=== PATIENT | male | born 1935 | race Caucasian/White ===

== ENCOUNTER 2017-03-06 10:26 | Emergency (ER) | payer MEDICARE, MEDICAID ==
[~2017-03-06] VITALS: Ht 177.8 cm; Wt 59.0 kg
[~2017-03-06 10:26] MED LIST: DONE5TAB33 PO; TAMS0.4C31 PO
[2017-03-06] MEDS ORDERED: ACETAMINOPHEN 325MG TABLET PO ONE (13:00)
[2017-03-06 13:19] LABS: BASOPHILS % 0.6 % (0.0-2.0); EOSINOPHILS % 2.1 % (0.0-5.0); HEMATOCRIT. 39.1 % (42.0-52.0); HEMOGLOBIN. 12.8 g/dL (14.0-18.0); LYMPHOCYTES % 29.2 % (20.0-50.0); MEAN CORPUSCULAR HEMOGLOBIN 30.7 pg (28.0-32.0); MEAN CORPUSCULAR VOLUME 93.8 fL (80.0-94.0); MEAN PLATELET VOLUME 8.5 fl (7.4-10.4); MONOCYTES % 13.7 % (2.0-8.0); NEUTROPHILS % 54.4 % (40.0-76.0); PLATELET 267 x1000/uL (130-400); RED BLOOD CELL COUNT 4.17 mill/uL (4.7-6.1)
[2017-03-06 13:33] LABS: CARBON DIOXIDE 31 mEq/L (21-32); CHLORIDE 107 mEq/L (98-107)
[2017-03-06 15:32] VITALS: BP 118/72
== END 2017-03-06 16:38 | disposition home or self-care (01) ==
LOC: ER 10:26
DX: M79.604 Pain in right leg (principal); W01.0XXA Fall on same level from slipping, tripping and stumbling without subsequent striking against object, initial encounter; Y93.89 Activity, other specified; Y92.89 Other specified places as the place of occurrence of the external cause; F02.80 Dementia in other diseases classified elsewhere, unspecified severity, without behavioral disturbance, psychotic disturbance, mood disturbance, and anxiety; G31.9 Degenerative disease of nervous system, unspecified; G30.9 Alzheimer's disease, unspecified; Z85.46 Personal history of malignant neoplasm of prostate; Z86.73 Personal history of transient ischemic attack (TIA), and cerebral infarction without residual deficits
CPT/HCPCS: 36415; 70450; 73502; 73560; 80053; 85025; 99285

== ENCOUNTER 2018-01-25 16:44 | Inpatient (IN) | payer MEDICARE, MEDICAID ==
[~2018-01-25] VITALS: Ht 170.2 cm; Wt 58.1 kg
[~2018-01-25 16:44] MED LIST changes: +ASPI-1236 MT; +ATOR10TA69 MT; +CYAN250014 PO; -DONE5TAB33 PO; +MULT-1146 MT; +PRIM50TA31 MT; -TAMS0.4C31 PO
[2018-01-25 18:20] LABS: CHLORIDE 105 mEq/L (98-107)
[2018-01-25 18:35] LABS: BASOPHILS % 0.4 % (0.0-2.0); HEMATOCRIT. 35.7 % (42.0-52.0); LYMPHOCYTES % 14.1 % (20.0-50.0); MEAN CORPUSCULAR HEMOGLOBIN 31.7 pg (28.0-32.0); MEAN CORPUSCULAR VOLUME 94.5 fL (80.0-94.0); MEAN PLATELET VOLUME 9.6 fl (7.4-10.4); MONOCYTES % 15.7 % (2.0-8.0); NEUTROPHILS % 69.8 % (40.0-76.0); PLATELET 193 x1000/uL (130-400); RED BLOOD CELL COUNT 3.78 mill/uL (4.7-6.1); RED CELL DISTRIBUTION WIDTH 13.6 % (11.6-14.6)
[2018-01-25] MEDS ORDERED: ACETAMINOPHEN 650MG SUPP PR ONE (19:00)
[2018-01-25 19:32] LABS: CLARITY URINE CLOUDY (CLEAR); COLOR URINE YELLOW (YELLOW); KETONES URINE NEGATIVE (NEGATIVE); LEUKOCYTE ESTERASE URINE 2+ (NEGATIVE); NITRITE URINE POSITIVE (NEGATIVE); OCCULT BLOOD URINE 1+ (NEGATIVE); PH URINE 7.5 (4.5-8.0); PROTEIN URINE 1+ (NEGATIVE); SPECIFIC GRAVITY URINE 1.018 (1.005-1.030)
[2018-01-25 19:39] LABS: *AMPHETAMINES SCREEN URINE NEGATIVE (NEGATIVE); *BARBITURATES SCREEN URINE NEGATIVE (NEGATIVE)
[2018-01-25 19:40] LABS: *BENZODIAZEPINES SCREEN URINE NEGATIVE (NEGATIVE); *COCAINE SCREEN URINE NEGATIVE (NEGATIVE); CANNABINOID URINE SCREEN NEGATIVE (NEGATIVE); METHADONE URINE SCREEN NEGATIVE (NEGATIVE); OPIATES URINE SCREEN NEGATIVE (NEGATIVE); PHENCYCLIDINE URINE SCREEN NEGATIVE (NEGATIVE)
[2018-01-25] MEDS ORDERED: GUAIFENESIN 200MG/10ML SUGAR FREE UDC PO PRN (22:00)
[2018-01-25] MEDS ORDERED: MORPHINE SULFATE 2 MG/ML CPJ (NOT FOR IM USE) IV PRN (22:00)
[2018-01-25] MEDS ORDERED: TRAMADOL 50MG TABLET PO PRN (22:00)
[2018-01-25] MEDS ORDERED: IPRATROPIUM/ALBUTEROL 0.5-3(2.5)MG/3ML NEB INH PRN (22:00)
[2018-01-25] MEDS ORDERED: SODIUM CHLORIDE 0.9% 500 ML IV ONE (22:00)
[2018-01-25] MEDS ORDERED: CLONIDINE 0.1MG TABLET PO PRN (22:00)
[2018-01-25] MEDS ORDERED: DOCUSATE SODIUM 100MG CAPSULE PO PRN (22:00)
[2018-01-25] MEDS ORDERED: CEFTRIAXONE 1 G PREMIX 50 ML IV ONE (22:00)
[2018-01-25] MEDS ORDERED: MAGNESIUM/ALUMINUM HYDROXIDE/SIMETHICONE 30ML UDC PO PRN (22:00)
[2018-01-25] MEDS ORDERED: NITROGLYCERIN 0.4MG TABLET SL SL PRN (22:00)
[2018-01-25] MEDS ORDERED: ONDANSETRON HCL 4MG/2ML INJ IV PRN (22:00)
[2018-01-25] MEDS ORDERED: ACETAMINOPHEN 325MG TABLET PO PRN (22:00)
[2018-01-25 22:50] LABS: T4 FREE 0.97 ng/dL (0.76-1.46)
[2018-01-25 23:41] LABS: CREATINE KINASE 77 IU/L (39-308)
[2018-01-25 23:42] LABS: CREATINE KINASE MB FRACTION < 1.0 ng/mL (0.5-3.6)
[2018-01-26] MEDS ORDERED: SODIUM CHLORIDE 0.9% 1000ML BAG (SEPSIS BOLUS) IV ONE
[2018-01-26] MEDS ORDERED: LEVOFLOXACIN 500MG PREMIX 100 ML IV SCH
[2018-01-26] MEDS: ENOXAPARIN 40MG/0.4ML SYR SUBCUT SCH ×2 (00:27→21:19)
[2018-01-26 06:35] LABS: CREATINE KINASE 78 IU/L (39-308)
[2018-01-26 06:37] LABS: CREATINE KINASE MB FRACTION 1.1 ng/mL (0.5-3.6)
[2018-01-26] MEDS ORDERED: FAMOTIDINE 20MG TABLET PO SCH (09:00)
[2018-01-26] MEDS: ZINC SULFATE 220 MG ( 50 ) CAPSULE PO SCH (09:43)
[2018-01-26] MEDS: ASPIRIN 325MG EC TABLET PO SCH (09:43)
[2018-01-26] MEDS: ASCORBIC ACID 500 MG TABLET PO SCH ×2 (09:43→21:19)
[2018-01-26] MEDS: METOPROLOL TARTRATE 25MG TABLET PO SCH ×2 (09:43→21:18)
[2018-01-26 12:00] VITALS: BP 138/63
[2018-01-26 16:00] VITALS: BP 138/72
[2018-01-26] MEDS: HALOPERIDOL LACTATE 5MG/ML VIAL IM PRN (18:01)
[2018-01-26 20:00] VITALS: BP 101/44
[2018-01-26] MEDS: ZOLPIDEM TARTRATE 5MG TABLET PO PRN (21:19)
[2018-01-26] MEDS ORDERED: CEFTRIAXONE 1 G PREMIX 50 ML IV SCH (23:00)
[2018-01-27] VITALS (8 sets, daily range): BP systolic 105–162; BP diastolic 59–93
[2018-01-27] MEDS ORDERED: LEVOFLOXACIN 250MG PREMIX 50 ML IV SCH
[2018-01-27] MEDS: METOPROLOL TARTRATE 25MG TABLET PO SCH ×2 (09:00→21:51)
[2018-01-27] MEDS: ASPIRIN 325MG EC TABLET PO SCH (09:51)
[2018-01-27] MEDS: ZINC SULFATE 220 MG ( 50 ) CAPSULE PO SCH (09:51)
[2018-01-27] MEDS: ASCORBIC ACID 500 MG TABLET PO SCH ×2 (09:51→21:51)
[2018-01-27] MEDS: ENOXAPARIN 40MG/0.4ML SYR SUBCUT SCH (21:51)
[2018-01-27] MEDS: ZOLPIDEM TARTRATE 5MG TABLET PO PRN (22:02)
[2018-01-27 23:08] LABS: FOLIC ACID (FOLATE) SERUM 10.2 ng/mL (>5.38)
[2018-01-28] VITALS: BP 143/69
[2018-01-28] MEDS: HALOPERIDOL LACTATE 5MG/ML VIAL IM PRN (00:56)
[2018-01-28] MEDS: LEVOFLOXACIN 250MG TABLET PO SCH ×2 (01:20→21:05)
[2018-01-28] MEDS: CEFTRIAXONE 1 G PREMIX 50 ML IV SCH (03:05)
[2018-01-28 04:00] VITALS: BP 152/54
[2018-01-28 08:00] VITALS: BP 130/74
[2018-01-28] MEDS: ASCORBIC ACID 500 MG TABLET PO SCH ×2 (08:56→21:05)
[2018-01-28] MEDS: ZINC SULFATE 220 MG ( 50 ) CAPSULE PO SCH (08:57)
[2018-01-28] MEDS: METOPROLOL TARTRATE 25MG TABLET PO SCH ×2 (08:57→21:00)
[2018-01-28] MEDS: ASPIRIN 325MG EC TABLET PO SCH (08:57)
[2018-01-28 12:00] VITALS: BP 112/65
[2018-01-28 16:00] VITALS: BP 122/95
[2018-01-28] MEDS ORDERED: INFLUENZA VIRUS VACCINE(AFLURIA) 0.5ML SYR IM ONE (16:00)
[2018-01-28 20:00] VITALS: BP 107/86
[2018-01-28] MEDS: ENOXAPARIN 40MG/0.4ML SYR SUBCUT SCH (21:06)
[2018-01-29 00:42] VITALS: BP 110/78
[2018-01-29] MEDS: CEFTRIAXONE 1 G PREMIX 50 ML IV SCH (04:12)
[2018-01-29 04:34] VITALS: BP 146/67
[2018-01-29 08:00] VITALS: BP 133/65
[2018-01-29] MEDS: ZINC SULFATE 220 MG ( 50 ) CAPSULE PO SCH (09:19)
[2018-01-29] MEDS: ASCORBIC ACID 500 MG TABLET PO SCH (09:19)
[2018-01-29] MEDS: ASPIRIN 325MG EC TABLET PO SCH (09:20)
[2018-01-29] MEDS: METOPROLOL TARTRATE 25MG TABLET PO SCH (09:20)
[2018-01-29 10:46] VITALS: BP 133/65
[2018-01-29 12:00] VITALS: BP 128/39
== END 2018-01-29 14:00 | disposition home health service (06) | DRG 871 ==
LOC: ER 16:44 → 5WST 21:30 → EDBEDREQTM 21:32 → EDBEDREQ 21:32 → SUPCPDRO 21:53 → ENRESERV 01-26 09:17
PROVIDERS: ADMIT Internal Medicine; ATTEND Internal Medicine
DX: A41.9 Sepsis, unspecified organism (principal); G92 Toxic encephalopathy; N17.9 Acute kidney failure, unspecified; N39.0 Urinary tract infection, site not specified; I69.351 Hemiplegia and hemiparesis following cerebral infarction affecting right dominant side; B96.20 Unspecified Escherichia coli [E. coli] as the cause of diseases classified elsewhere; I10 Essential (primary) hypertension; D63.8 Anemia in other chronic diseases classified elsewhere; E78.00 Pure hypercholesterolemia, unspecified; F03.90 Unspecified dementia, unspecified severity, without behavioral disturbance, psychotic disturbance, mood disturbance, and anxiety; Z79.899 Other long term (current) drug therapy; Z79.82 Long term (current) use of aspirin
CPT/HCPCS: 36415; 71045; 80061; 80305; 82550; 82553; 82607; 82746; 83036; 83540; 83550; 83605; 83735; 83880; 84439; 84443; 84484; 87077; 87186; 90686; 93005; 93306; 93970; 96365; 96367; 97162; 97167; 99285; C1893; J0696; J1630; J1650; J1956; J7030; J7040

== ENCOUNTER 2021-07-17 11:22 | Emergency (ER) | payer MEDICARE, MEDICAID ==
[~2021-07-17] VITALS: Ht 170.2 cm; Wt 70.0 kg
[~2021-07-17 11:22] MED LIST changes: -ASPI-1236 MT; +ASPI81TA43 MT
[2021-07-17] MEDS ORDERED: TETANUS, DIPHTHERIA, PERTUSSIS VAC/PF 0.5ML (>10YR OLD) IM ONE (12:30)
[2021-07-17] MEDS ORDERED: LIDOCAINE HCL 1% 20ML VIAL (Pyxis) INJ INFIL ONE (14:00)
[2021-07-17] MEDS ORDERED: LIDOCAINE HCL 1% 20ML VIAL (Pyxis) INJ INFIL NR (15:15)
[2021-07-17] MEDS ORDERED: IBUPROFEN 100MG/5ML UDC PO ONE (16:45)
[2021-07-17 17:00] VITALS: BP 137/83
== END 2021-07-17 17:06 | disposition home or self-care (01) ==
LOC: ER 11:55
DX: S02.2XXA Fracture of nasal bones, initial encounter for closed fracture (principal); W22.8XXA Striking against or struck by other objects, initial encounter; Y93.89 Activity, other specified; Y92.89 Other specified places as the place of occurrence of the external cause; Y99.8 Other external cause status; K59.00 Constipation, unspecified; F03.90 Unspecified dementia, unspecified severity, without behavioral disturbance, psychotic disturbance, mood disturbance, and anxiety; Z86.73 Personal history of transient ischemic attack (TIA), and cerebral infarction without residual deficits; Z79.899 Other long term (current) drug therapy
CPT/HCPCS: 12013; 70450; 70486; 90471; 90715; 99284; J3490